=== PATIENT | male | born 1970 | race Two or more races ===

== ENCOUNTER → 2018-10-30 | Emergency (ER) | payer OTHER ==
[~2018-10-30] VITALS: Ht 175.3 cm; Wt 90.7 kg
[~2018-10-30] MED LIST: KETO10TA2 PO; ZITHROMAX500 MG PO
== END | disposition home or self-care (01) ==
LOC: ER 21:54
DX: J02.8 Acute pharyngitis due to other specified organisms (principal)

== ENCOUNTER 2019-01-17 15:57 | Emergency (ER) | payer OTHER ==
[~2019-01-17] VITALS: Ht 177.8 cm; Wt 90.7 kg
== END 2019-01-17 17:04 | disposition home or self-care (01) ==
LOC: ER 15:57
DX: H92.01 Otalgia, right ear (principal)

== ENCOUNTER 2019-11-12 19:07 | Emergency (ER) | payer OTHER ==
[~2019-11-12] VITALS: Ht 175.3 cm; Wt 95.3 kg
== END 2019-11-12 22:55 | disposition home or self-care (01) ==
LOC: ER 19:07
DX: B34.9 Viral infection, unspecified (principal)